=== PATIENT | female | born 1960 | race Caucasian/White ===

== ENCOUNTER 2018-10-14 00:08 | Emergency (ER) | payer OTHER ==
[~2018-10-14] VITALS: Ht 170.2 cm; Wt 73.9 kg
[2018-10-14] MEDS ORDERED: DIPHENHYDRAMINE HCL INJ 50 MG/ML VIAL IV ONE (01:15)
--- NOTE | 2018-10-14 01:25 | NUR ---
pt was d/c and was on the way out to car with son, pt suddenly became lightheaded, dizzy, and nauseous; er md notified and pt placed back in room one for re-eval
--- NOTE | 2018-10-14 02:00 | NUR ---
pt states she feels better and the dizziness/n/v has "almost gone away" and feels okay to go home; pt discharged in good condition with son as delivery route driver
== END 2018-10-14 01:13 | disposition home or self-care (01) ==
LOC: FSED 00:08
DX: L50.9 Urticaria, unspecified (principal)
CPT/HCPCS: 99282